=== PATIENT | female | born 1985 | race Two or more races ===

== ENCOUNTER 2025-05-21 08:45 | Emergency (ER) | payer MEDICAID, SELFPAY ==
[2025-05-21 09:11] VITALS: BP 125/79; PULSE 65; RESP 16; TEMP 37.1; O2SAT 100; BMI 28.3
--- NOTE | 2025-05-21 09:52 | XR_ITS ---
Examination: PA lateral chest 2 views TECHNIQUE: Upright PA lateral chest 2 views Date and time: May 21, 2025 1004 hours INDICATIONS: Chest pain beginning 5 days ago. FINDINGS: Normal heart size. Lungs are clear. The osseous structures are intact. No foreign body depicted. IMPRESSION: No active disease.
--- NOTE | 2025-05-21 09:52 | EKG_ITS ---
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
--- NOTE | 2025-05-21 09:53 | PD.EDRME ---
Rapid Medical Screening Exam RM Arrival date/time: 05/21/25 08:45 40-year-old female presents to the Emergency Department for complaints of foreign body sensation in her chest patient reports that she took a vitamin on and feels like it got stuck. Chief Complaint: Dental/Oral/Throat Vital signs: Vital Signs Temperature 98.7 F 05/21/25 09:11 Pulse Rate 65 05/21/25 09:11 Respiratory Rate 16 05/21/25 09:11 Blood Pressure 125/79 05/21/25 09:11 Pulse Oximetry (%) 100 05/21/25 09:11 Oxygen Delivery Method Room Air 05/21/25 09:11
[2025-05-21 11:36] LABS: Basophils # (Auto) 0.1 Thou/mm3 (0.0-0.2); Basophils % (Auto) 1 % (0-2.5); Eosinophils # (Auto) 0.1 Thou/mm3 (0.0-0.5); Eosinophils % (Auto) 1 % (0-10); Hematocrit 35.4 % (36.0-46.0); Hemoglobin 10.6 g/dL (12.0-16.0); Immature Granulocytes Auto 0.00 Thou/mm3 (0.00-0.00); Lymphocytes # (Auto) 1.7 Thou/mm3 (1.0-4.8); Lymphocytes % (Auto) 32 % (10-50); Mean Corpuscular HGB Conc 29.9 g/dl (31.0-37.0); Mean Corpuscular Hemoglobin 22.6 pg (25.0-35.0); Mean Corpuscular Volume 76 fL (80-100); Monocytes # (Auto) 0.5 Thou/mm3 (0.0-0.8); Monocytes % (Auto) 9 % (0-12); Neutrophils # (Auto) 3.0 Thou/mm3 (1.8-7.7); Neutrophils % (Auto) 56 % (37-80); Nucleated Red Blood Cell # 0.00 Thou/mm3 (0.00-0.00); Nucleated Red Blood Cell % 0 /100 WBC (0); Platelet Count 158 Thou/mm3 (140-440); RDW Standard Deviation 45.4 fL (36.4-46.3); Red Blood Count 4.69 Miln/mm3 (4.00-5.20); White Blood Count 5.3 Thou/mm3 (3.6-11.0)
[2025-05-21 11:49] LABS: Alanine Aminotransferase 14 U/L (10-49); Albumin, Serum 4.3 gm/dL (3.5-5.0); Albumin/Globulin Ratio 1.6 (1.2-2.2); Alkaline Phosphatase 71 U/L (46-116); Anion Gap 8 (7-16); Aspartate Amino Transferase 14 U/L (0-34); BUN/Creatinine Ratio 13 Ratio (12-20); Bilirubin,Total 0.6 mg/dL (0.3-1.2); Blood Urea Nitrogen 9 mg/dL (9-23); Calcium 9.6 mg/dL (8.3-10.6); Calcium (Corrected) 9.6 mg/dL (8.5-10.1); Carbon Dioxide 26.6 mMol/L (20.0-31.0); Chloride 107 mMol/L (98-107); Creatinine (Component) 0.7 mg/dL (0.6-1.3); Estimated Creatinine Clearance 103.0 mL/min (>60); Globulin 2.7 gm/dL (2.3-3.5); Glucose 86 mg/dL (74-106); Lipase 31 U/L (12-53); Osmolality,Calculated 280 (275-295); Potassium 4.1 mMol/L (3.4-5.1); Sodium 142 mMol/L (136-145); Total Protein 7.0 gm/dL (5.7-8.2); Troponin I < 0.002 ng/mL (0.0-0.045); eGFR > 60 See Note
--- NOTE | 2025-05-21 12:14 | EDNOTE_ITS ---
<Statement entered by Raina Orozco MD - 05/31/25 11:11> As co-signing physician, I was present and available for consult prn. I concur with the plan and care as documented by the midlevel provider. ED Dental RME/HPI General Chief complaint: Dental/Oral/Throat Stated complaint: FEELS LIKE THERE IS SOMETHING STUCK IN THROAT Time Seen by Provider: 05/21/25 12:16 Arrival date/time: 05/21/25 08:45 40-year-old female presents to the Emergency Department for complaints of foreign body sensation in her chest patient reports that she took a vitamin on and feels like it got stuck. Limitations: no limitations RME / HPI RME / HPI Narrative: 05/21/25 08:45 40-year-old female presents to the Emergency Department for complaints of foreign body sensation in her chest patient reports that she took a vitamin on and feels like it got stuck. Related Data Allergies Allergy/AdvReac Type Severity Reaction Status Date / Time Penicillins Allergy Mild Hives Verified 05/21/25 08:47 Review of Systems Review of Systems Systems Reviewed: All systems reviewed, normal except as documented Constitutional Constitutional: Reports system reviewed and no additional complaints, except as documented, Denies fever(s) and Denies headache(s) Eyes Eyes: Reports system reviewed and no additional complaints, except as documented and Denies blurry vision ENT Ears, Nose, Mouth, and Throat: Reports system reviewed and no additional complaints, except as documented, Denies headache(s), Denies nasal congestion and Denies nasal discharge Cardiovascular Cardiovascular: Reports system reviewed and no additional complaints, except as documented, Denies chest pain and Denies dyspnea Respiratory Respiratory: Reports system reviewed and no additional complaints, except as documented, Denies chest congestion, Denies cough and Denies dyspnea Gastrointestinal Gastrointestinal: Reports system reviewed and no additional complaints, except as documented, Denies abdominal pain and Reports other (Foreign body sensation abdomen) Integumentary/Breasts Skin/Breast: Reports system reviewed and no additional complaints, except as documented and Denies rash Neurologic Neurologic: Reports system reviewed and no additional complaints, except as documented, Reports as per HPI and Denies headache(s) Past Medical History Social History SMOKING STATUS: Never smoker ED Exam General Limitations: Present no limitations General appearance: Present alert and in no apparent distress Head Head exam: Present atraumatic Eye Eye exam: Present normal appearance, PERRL and EOMI ENT ENT exam: Present normal exam, normal oropharynx and mucous membranes moist Neck Neck exam: Present normal inspection, full ROM and trachea midline Chest Chest inspection: Present normal inspection and symmetric chest wall rise Respiratory Respiratory exam: Present normal lung sounds bilaterally Cardiovascular Cardiovascular exam: Present regular rate, normal rhythm and normal heart sounds Abdominal Exam Abdominal exam: Present soft and normal bowel sounds; Absent distention, tenderness, guarding, rebound, rigidity, Sharma's sign or tenderness at McBurney's Point Abdominal tenderness: Absent RUQ or RLQ Extremities Exam Extremities exam: Present normal inspection and full ROM Back Exam Back exam: Present normal inspection and full ROM Neurological Exam Neurological exam: Present alert, oriented X3 and CN II-XII intact Psychiatric Psychiatric exam: Present normal affect and normal mood Skin Skin exam: Present warm, dry, intact and normal color Course Quality Measures none Orders Category Date Time Status EKG (ED ONLY) *Do not use* NOW Care 05/21/25 09:52 Completed EKG (ED Only) Stat Exams 05/21/25 09:52 Draft XR chest 2V Stat Exams 05/21/25 09:52 Completed CBC Stat Lab 05/21/25 10:48 Completed Comprehensive Metabolic Panel Stat Lab 05/21/25 10:48 Completed Lipase Stat Lab 05/21/25 10:48 Completed Troponin I Stat Lab 05/21/25 10:48 Completed Vital Signs Vital signs: Vital Signs Temperature 98.7 F 05/21/25 09:11 Pulse Rate 65 05/21/25 09:11 Respiratory Rate 16 05/21/25 09:11 Blood Pressure 125/79 05/21/25 09:11 Pulse Oximetry (%) 100 05/21/25 09:11 Oxygen Delivery Method Room Air 05/21/25 09:11 O2 saturation 100% room air within normal limits PROCEDURES: EKG Interpretation #1: Date of EK05/21/25 Time of EK:52 Rate: 67 Interpretation: Interpreted by me EKG Impression: Normal sinus rhythm, No acute ST-T changes, No ectopy, No ischemic changes, Normal QRS, Normal intervals and Normal axis Dental / Oral MDM Narrative MDM Narrative:: 40-year-old female presents to the Emergency Department for complaints of foreign body sensation in her chest patient reports that she took a vitamin on and feels like it got stuck. On exam patient well-appearing patient does not appear toxic no acute distress Patient has no evidence of aspiration patient has no evidence of difficulty breathing or swallowing Patient reports that she is able to eat and drink I explained to the patient we will get some lab work and imaging all of which is unremarkable at this time Explained to the patient she should have her primary care doctor referred to GI specialist for worsening symptoms return immediately Patient data External records reviewed:: [facility] previous records Clinical information provided by:: patient Social determinants that could affect healthcare access:: none Patient has the following chronic illnesses:: None How is presenting disease/condition affected by chronic disease/condition?: no chronic disease Evaluation data The following diagnostics were reviewed and interpreted by me:: lab results, radiology exam(s) and EKG tracing(s) Lab and/or radiology exams considered but not ordered:: Labs radiology obtained Interpretation Summary: By me Medications / Prescriptions Medications or Prescriptions considered but not ordered:: No meds Medication administrations:: No meds Consultations Consultation(s) initiated? (list below): No Diagnosis Dental Differential Diagnosis: other (Abdominal pain, foreign body sensation) Most likely diagnosis given after review of the tests above:: Abdominal pain, foreign body sensation Admission Indicated Admission indicated?: not indicated Admission Request Was there a request for admission?: No Disposition Plan Disposition Plan: Discharge Discharge Attestation Discharge Attestation: The patient and all family members were given an opportunity to ask questions and understood the discharge instructions. Discharge instructions specifically effects, indications for sooner follow up or return to the emergency department, and the expected course of current diagnosis. Patient condition: Stable Discharge Plan Plan Patient Disposition: HOME (Self Care) Discharge Disposition comment: Stable Prescriptions/Referrals Referrals: No Primary/Family,Physician [Primary Care Provider] - 05/22/25 Problem List Clinical Impression: Sensation of foreign body Patient/Caregiver Discharge Instructions Additional Instructions: Please follow up with your primary care doctor in the next 24-48hrs for any worsening symptoms return here immediately Please request referral to GI specialist by your PCP Print Language: Dominican Stand Alone Forms: Rama Award Info., Patient Portal Info Letter RADHA/LUZ Supervising Physician RADHA/LUZ Supervising Physician: dr orozco
== END 2025-05-21 12:32 | disposition home or self-care (01) ==
PROVIDERS: Nurse Practitioner Primary Care; Emergency Provider Emergency Medicine
DX: R09.A0 Foreign body sensation, unspecified (principal)
CPT/HCPCS: 36415; 71046; 80053; 83690; 84484; 85025; 93005; 99283